=== PATIENT | male | born 1950 | race Caucasian/White ===

== ENCOUNTER 2018-02-24 06:44 | Day surgery (SDC) | payer MEDICARE, BC ==
[2018-02-23 12:19] VITALS: BMI 21.2
[2018-02-24 08:55] LABS: #Basophils 0.1 thou/uL (0.0-0.2); #Eosinphils 0.1 thou/uL (0.0-0.7); #Lymphocytes 1.1 thou/uL (1.20-3.40); #Monocytes 0.9 thou/uL (0.11-0.59); %Basophils 0.8 % (0.0-1.0); %Eosinophils 1.2 % (0.0-10.0); %Lymphocytes 10.8 % (21.0-51.0); %Monocytes 9.1 % (0.0-10.0); %Neutrophils 78.1 % (42.0-75.0); Hemoglobin 14.7 g/dL (14.0-18.0); Mean Corpuscular HGB CONC 34.5 g/dL (32.0-36.0); Mean Corpuscular Hemoglobin 31.6 pg (27.0-31.0); Mean Corpuscular Volume 91.6 fl (80.0-94.0); Mean Platelet Volume 6.1 fL (7.4-10.4); Platelet Count 293 thou/uL (130-400); RBC Distribution Width 11.9 % (11.5-14.5); Red Blood Cell (RBC) Count 4.65 mill/uL (4.70-6.10); White Blood Cell (WBC) Count 10.2 thou/uL (4.8-10.8)
[2018-02-24 09:02] LABS: PTT 24.9 SEC (22.9-36.1); Prothrombin Time 13.7 SEC (12.0-14.7)
[2018-02-24] MEDS ORDERED: CEFAZOLIN/Water 2 GM/20 ML SYRINGE ONE (09:14)
[2018-02-24 09:15] LABS: Anion Gap 12 mmol/L (10-20); BUN (Urea Nitrogen) 22 mg/dL (8.4-25.7); Calc. Creatinine Clearance 74 mL/min (70-130); Calcium 9.5 mg/dL (7.8-10.44); Carbon Dioxide 29 mmol/L (23-31); Chloride 99 mmol/L (98-107); Estimated GFR-MDRD 81; Glucose 100 mg/dL (80-115); Potassium 4.6 mmol/L (3.5-5.1); Sodium 135 mmol/L (136-145)
[2018-02-24] MEDS ORDERED: Fentanyl 100 MCG/2 ML VIAL ONE (10:13)
[2018-02-24] MEDS ORDERED: Sodium Chloride 0.9% 10 ML ONE (10:37)
[2018-02-24] MEDS ORDERED: Bacitracin Zinc Ointment 30 gm TUBE ONE (10:37)
[2018-02-24] MEDS ORDERED: Thrombin 5000 UNITS/5 ML VIAL ONE (10:37)
[2018-02-24] MEDS ORDERED: Ondansetron HCl/PF 4 MG/2 ML Vial IVP PRN (12:32)
[2018-02-24] MEDS ORDERED: Morphine Sulfate 2 MG/ML SYRINGE SLOW IVP PRN (12:32)
[2018-02-24] MEDS ORDERED: Acetaminophen/Codeine 30-300mg Tablet PO PRN (13:46)
[2018-02-24] MEDS ORDERED: Fleet Enema 133 ML BOT PR PRN (13:46)
[2018-02-24] MEDS ORDERED: tiZANidine HCl 4 MG TAB PO PRN (13:46)
[2018-02-24] MEDS ORDERED: Promethazine HCl 25 MG/ML VIAL IM PRN (13:46)
[2018-02-24] MEDS ORDERED: traMADol HCl 50 MG TAB PO PRN (13:46)
[2018-02-24] MEDS ORDERED: Acetaminophen 325 MG TAB PO PRN (13:46)
[2018-02-24] MEDS ORDERED: Milk Of Magnesia 30 ML UDCUP PO PRN (13:46)
[2018-02-24] MEDS ORDERED: Bisacodyl 10 MG SUPP PR PRN (13:46)
[2018-02-24] MEDS ORDERED: Mag-Al 1200 mg/1200 mg/30 ML UDCUP PO PRN (13:46)
[2018-02-24] MEDS ORDERED: Morphine 4 MG/ML VIAL SLOW IVP PRN (13:46)
--- NOTE | 2018-02-24 13:48 | OP ---
OR 11 TYPE 1 WOUND. SURGEON: Wei Ross M.D. PATHOLOGY LABORATORY AIDES TEACHER: Pedro Valentine PA-C. PREPROCEDURE DIAGNOSIS: Bilateral T1 radiculopathy with history of subaxial cervical spine diffuse i diopathic skeletal hyperostosis. POSTPROCEDURE DIAGNOSIS: Bilateral T1 radiculopathy with history of subaxial cervical spine diffuse idiopathic skeletal hyperostosis. PROCEDURES: T1 laminectomy with bilateral foraminotomy over the T1 nerve roots, partial facetectomie s for decompression of the T1 nerve roots bilaterally. DESCRIPTION OF PROCEDURE: After informed consent was obtained from the patient, the patient was brou ght to OR 11. Proper patient pause and identification was carried out. He was placed in excellent e ndotracheal anesthesia and positioned prone on the operating table. After the Celaya eri was se cured to his skull, this was secured to the OR table and his cervical spine was kept in neutral posit ion. We identified with gross and fluoroscopic visualization appropriate approach allowing for appro ach to the T1 segment. This region was sterilely cleansed, prepared, and draped. Proper patient shu se and identification was carried out. The wound was then opened using a combination of sharp, monop olar and blunt dissection and bilateral T1-T2 segments were exposed. Localization film confirmed our area of interest. We then performed a T1 laminectomy, partial facetectomy, and foraminotomies over the T1 nerve roots bilaterally. Hemostasis maximized throughout. The wound was copiously irrigated and closed in anatomic layers following the sprinkling of vancomycin powder. The patient then emerge d from anesthesia.
[2018-02-24] MEDS ORDERED: PROPOFOL 200 MG/20 ML VIAL ONE (15:02)
[2018-02-24] MEDS ORDERED: Ondansetron HCl/PF 4 MG/2 ML Vial ONE (15:02)
[2018-02-24] MEDS ORDERED: Lidocaine 1% PF 5 ML VIAL ONE (15:02)
[2018-02-24] MEDS ORDERED: Glycopyrrolate 0.2 MG/ML 5 ML SYRINGE ONE (15:02)
[2018-02-24] MEDS ORDERED: Ketorolac Tromethamine 30 MG/ML VIAL ONE (15:02)
[2018-02-24] MEDS: Sodium Chloride 0.9% 1,000 ML IV SCH (17:00)
[2018-02-24] MEDS: CEFAZOLIN/Water 2 GM/20 ML SYRINGE SLOW IVP SCH (18:53)
[2018-02-24] MEDS: HYDROcodone/Acetaminophen 7.5/325 mg Tablet PO PRN (18:56)
[2018-02-24] MEDS: Atorvastatin Calcium 20 MG TAB PO SCH (20:08)
[2018-02-24] MEDS: Famotidine 20 MG TAB PO SCH (20:08)
[2018-02-24] MEDS: Atenolol 50 MG TAB PO SCH (20:08)
[2018-02-25] MEDS: CEFAZOLIN/Water 2 GM/20 ML SYRINGE SLOW IVP SCH (00:37)
[2018-02-25] MEDS: HYDROcodone/Acetaminophen 7.5/325 mg Tablet PO PRN ×4 (00:44→18:48)
[2018-02-25] MEDS: Melatonin 3 MG TAB PO PRN ×2 (00:45→20:08)
[2018-02-25] MEDS: Sodium Chloride 0.9% 1,000 ML IV SCH ×3 (00:55→20:10)
[2018-02-25] MEDS ORDERED: Fluticasone Propionate Nasal Spray 16 gm Bottle NASAL PRN (09:00)
[2018-02-25] MEDS ORDERED: Prevnar 13-Val Conj/PF 0.5 ML SYRINGE IM ONE (09:00)
[2018-02-25] MEDS: Losartan 25 MG TAB PO SCH (09:18)
[2018-02-25] MEDS: Atenolol 50 MG TAB PO SCH ×2 (09:18→20:06)
[2018-02-25] MEDS: Amiodarone 200 MG TAB PO SCH (09:19)
[2018-02-25] MEDS: Multivitamin W/ Minerals 1 TAB PO SCH (09:19)
--- NOTE | 2018-02-25 09:52 | PRG ---
DATE OF SERVICE: 02/25/2018 Mr. Lopes is postop day 1 for bilateral T1 foraminotomies. He is doing well, stable exam and hand in trinsic weakness. He has not urinated yet. We will work on that and then he may be dismissed.
[2018-02-25] MEDS ORDERED: Tamsulosin HCl 0.4 MG CAP PO SCH (10:45)
[2018-02-25] MEDS: Famotidine 20 MG TAB PO SCH (20:06)
[2018-02-25] MEDS: Atorvastatin Calcium 20 MG TAB PO SCH (20:06)
[2018-02-26] MEDS: HYDROcodone/Acetaminophen 7.5/325 mg Tablet PO PRN (01:12)
[2018-02-26] MEDS: Atenolol 50 MG TAB PO SCH (08:41)
[2018-02-26] MEDS: Losartan 25 MG TAB PO SCH (08:41)
[2018-02-26] MEDS: Multivitamin W/ Minerals 1 TAB PO SCH (08:41)
[2018-02-26] MEDS: Amiodarone 200 MG TAB PO SCH (08:41)
[2018-02-26] MEDS ORDERED: Ondansetron HCl/PF 4 MG/2 ML Vial IVP PRN (11:05)
[2018-02-26] MEDS ORDERED: Fleet Enema 133 ML BOT FS PRN (11:06)
[2018-02-26 12:27] VITALS: BP 153/75; TEMP 97.7
--- NOTE | 2018-03-01 17:55 | EKG ---
Test Reason : PREOP Blood Pressure : / mmHG Vent. Rate : 064 BPM Atrial Rate : 064 BPM P-R Int : 184 ms QRS Dur : 084 ms QT Int : 448 ms P-R-T Axes : 032 -27 031 degrees QTc Int : 462 ms Normal sinus rhythm Normal ECG When compared with ECG of 09-JUN-2016 17:21, Vent. rate has decreased BY 35 BPM Confirmed by Grace TOM ([id number]) on 03/01/2018 5:54:53 PM Referred By: PANTERA Confirmed By:Grace TOM
== END 2018-02-26 15:40 | disposition home or self-care (01) ==
LOC: SDC 06:44 → SURG B 15:59 → SDC 02-26 15:40
PROVIDERS: ATTEND Surgery
PROC: 01N80ZZ Release Thoracic Nerve, Open Approach (ICD-10-PCS; principal; 2018-02-24)
DX: M54.14 Radiculopathy, thoracic region (principal); Z79.01 Long term (current) use of anticoagulants; Z79.82 Long term (current) use of aspirin; Z79.899 Other long term (current) drug therapy; Z88.2 Allergy status to sulfonamides; Z88.8 Allergy status to other drugs, medicaments and biological substances; Z98.890 Other specified postprocedural states
CPT/HCPCS: 36415; 76001; 80048; 85025; 85610; 85730; 93005; 93010; A4216; J1885; J2001; J2405; J2704; J3010; J3370; J3490

== ENCOUNTER 2024-07-05 13:01 | Outpatient (CLI) | payer MEDICARE, BC ==
[~2024-07-05 13:01] MED LIST: Iopamidol 370 76% 100 ML VIAL ONE
== END 2024-07-05 13:02 | disposition home or self-care (01) ==
LOC: BICCT 13:01
PROVIDERS: ATTEND Physician Assistant Medical
DX: K59.00 Constipation, unspecified (principal); R14.0 Abdominal distension (gaseous)
CPT/HCPCS: 74177; 82565

== ENCOUNTER → 2024-10-25 | Day surgery (SDC) | payer MEDICARE, BC | LOC: SDC 13:22 | PROVIDERS: ATTEND Physician Assistant Medical | PROC: 4A0B7BZ Measurement of Gastrointestinal Pressure, Via Natural or Artificial Opening (ICD-10-PCS; principal; 2024-10-25) | DX: R13.19 Other dysphagia (principal); R19.4 Change in bowel habit; E22.2 Syndrome of inappropriate secretion of antidiuretic hormone; K59.09 Other constipation; K21.9 Gastro-esophageal reflux disease without esophagitis; F41.9 Anxiety disorder, unspecified; I48.91 Unspecified atrial fibrillation; I10 Essential (primary) hypertension; K58.9 Irritable bowel syndrome, unspecified; Z98.49 Cataract extraction status, unspecified eye; Z79.899 Other long term (current) drug therapy; Z98.890 Other specified postprocedural states; Z79.01 Long term (current) use of anticoagulants; Z88.2 Allergy status to sulfonamides; Z88.8 Allergy status to other drugs, medicaments and biological substances | CPT/HCPCS: 91010 ==